=== PATIENT | female | born 1975 | race Two or more races ===

== ENCOUNTER 2016-11-02 20:48 | Emergency (ER) | payer MEDICAID ==
[~2016-11-02] VITALS: Ht 160 cm; Wt 59.0 kg
[2016-11-02 21:34] LABS: Urine RBC None Seen /hpf (0 - 4)
[2016-11-02 21:41] LABS: Urine Bilirubin Negative (Negative); Urine Blood Negative /uL (Negative); Urine Color Yellow (Yellow); Urine Glucose Normal (Normal); Urine Ketone Negative (Negative); Urine Nitrite Negative (Negative); Urine Squamous Epithelial Cell FEW /hpf (<5); Urine Urobilinogen Normal (Negative); Urine pH 5.5 (5.0-8.0)
[2016-11-02 22:58] VITALS: BP 119/82
== END 2016-11-02 23:15 | disposition home or self-care (01) ==
LOC: ER 21:03
DX: B86 Scabies (principal); Z88.6 Allergy status to analgesic agent; N39.0 Urinary tract infection, site not specified
CPT/HCPCS: 81001; 81025